=== PATIENT | male | born 1940 | race Caucasian/White ===

== ENCOUNTER 2024-04-10 17:41 | Emergency (ER) | payer MEDICARE ==
[~2024-04-10] VITALS: Ht 188 cm; Wt 113.4 kg
[~2024-04-10 17:41] MED LIST: DOXAZOSIN MESYLA2 MG PO; FENOFIBRATE145 MG PO; LOSARTAN POTASS25 MG PO; SIMVASTATIN80 MG PO; ULTRAM 50MG50 MG PO
[2024-04-10 17:47] VITALS: TEMP 97.4
[2024-04-10 20:00] VITALS: PULSE 71; RESP 20; O2SAT 100
== END 2024-04-10 20:34 | disposition home or self-care (01) ==
LOC: ER 18:05
DX: S01.81XA Laceration without foreign body of other part of head, initial encounter (principal); S80.212A Abrasion, left knee, initial encounter; S80.211A Abrasion, right knee, initial encounter; W01.0XXA Fall on same level from slipping, tripping and stumbling without subsequent striking against object, initial encounter; Y93.01 Activity, walking, marching and hiking; Y92.89 Other specified places as the place of occurrence of the external cause; G20.A1 Parkinson's disease without dyskinesia, without mention of fluctuations; I10 Essential (primary) hypertension; E78.5 Hyperlipidemia, unspecified
CPT/HCPCS: 70450; 72125; 99283